=== PATIENT | female | born 1940 | race Caucasian/White ===

== ENCOUNTER 2018-08-06 11:37 | Outpatient (CLI) | payer MEDICARE ==
[~2018-08-06 11:37] MED LIST: ALLO100T30 PO; ALLO300T80 PO; DILT240C55 PO; DOXY100T PO; FLUT1DIS3 INH; GABAPENTIN PO; HYDR-3237 PO; LEVO500T47 PO; LOSA25TA25 PO; METO25TA35 PO; METO50TA82 PO; OMEP-110 PO; PLAVIX PO; PRILOSEC; RAMIPRIL; SIMV40TA PO; SIMVASTATIN PO; VICODIN PO
[2018-08-06] MEDS ORDERED: METO50TA82 PO (12:19)
[2018-08-06] MEDS ORDERED: LOSA100T14 PO (12:19)
[2018-08-06] MEDS ORDERED: ATOR40TA78 PO (12:19)
[2018-08-06] MEDS ORDERED: ALLO300T PO (12:19)
[2018-08-06] MEDS ORDERED: CLOP75TA52 PO (12:19)
[2018-08-06] MEDS ORDERED: GABA600T7 PO (12:19)
== END 2018-08-06 23:59 | disposition home or self-care (01) ==
LOC: CLISVCS 11:37 → CVU 23:59
PROVIDERS: ATTEND Surgery
DX: Z02.9 Encounter for administrative examinations, unspecified (principal)

== ENCOUNTER → 2018-08-31 | Outpatient (CLI) | payer MEDICARE ==
[~2018-08-31] MED LIST changes: +ALLO300T PO; +ATOR40TA78 PO; +CLOP75TA52 PO; +GABA600T7 PO; +LOSA100T14 PO
== END | disposition home or self-care (01) ==
LOC: CVU 12:43
PROVIDERS: ATTEND Family Medicine
DX: I65.23 Occlusion and stenosis of bilateral carotid arteries (principal); I10 Essential (primary) hypertension; E78.5 Hyperlipidemia, unspecified; Z87.891 Personal history of nicotine dependence
CPT/HCPCS: 93880

== ENCOUNTER 2018-09-22 08:29 | Outpatient (CLI) | payer BC, MEDICARE | END 2018-09-22 23:59 | disposition home or self-care (01) | LOC: CVU 08:29 | PROVIDERS: ATTEND Surgery | DX: I73.89 Other specified peripheral vascular diseases (principal); M79.672 Pain in left foot; M79.671 Pain in right foot | CPT/HCPCS: 93970 ==